=== PATIENT | female | born 1965 | race Hispanic/Latino ===

== ENCOUNTER 2023-03-02 10:22 | Outpatient (CLI) | payer BC, OTHER ==
[2023-03-02 11:45] LABS: #Basophils 0.1 10x3/uL (0.0-0.2); #Eosinphils 0.3 10x3/uL (0.0-0.5); #Monocytes 0.4 10x3/uL (0.0-1.1); %Basophils 0.8 % (0.0-2.0); %Lymphocytes 41.4 % (18.0-47.0); %Monocytes 6.4 % (0.0-10.0); %Neutrophils 47.1 % (40.0-75.0); Hematocrit 45.1 % (34.9-44.5); Hemoglobin 15.3 g/dL (12.0-15.5); Mean Corpuscular HGB CONC 33.9 g/dL (32.0-36.0); Mean Corpuscular Hemoglobin 31.3 pg (27.0-33.0); Mean Corpuscular Volume 92.2 fl (81.6-98.3); Mean Platelet Volume 11.6 fl (7.4-10.4); Platelet Count 309 10x3/uL (150-450); RBC Distribution Width 12.9 % (11.5-14.5); Red Blood Cell (RBC) Count 4.89 10x6/uL (3.90-5.03); White Blood Cell (WBC) Count 6.3 10x3/uL (3.5-10.5)
[2023-03-02 12:50] LABS: ALT (SGPT) 47 U/L (8-55); AST (SGOT) 22 U/L (5-34); Alkaline Phosphatase 80 U/L (40-110); Anion Gap 13 mmol/L (10-20); BUN (Urea Nitrogen) 12 mg/dL (9.8-20.1); Bilirubin, Total 0.3 mg/dL (0.2-1.2); Calc. Creatinine Clearance 0 mL/min (70-130); Carbon Dioxide 25 mmol/L (22-29); Chloride 109 mmol/L (98-107); Estimated GFR 99; Globulin 2.6 g/dL (2.4-3.5); Glucose 110 mg/dL (70-105); Potassium 4.6 mmol/L (3.5-5.1); Protein, Total 6.6 g/dL (6.0-8.3); Sodium 142 mmol/L (136-145)
== END 2023-03-02 10:23 | disposition home or self-care (01) ==
LOC: LABBT 10:22
PROVIDERS: ATTEND Surgery
DX: Z01.818 Encounter for other preprocedural examination (principal); K43.9 Ventral hernia without obstruction or gangrene
CPT/HCPCS: 80053; 85025; 93005; 93010

== ENCOUNTER 2023-03-06 05:58 | Day surgery (SDC) | payer BC, OTHER ==
[2023-03-02 11:28] VITALS: BMI 31.3
[2023-03-06] MEDS ORDERED: Midazolam HCl 2 mg/2 ml Vial ONE (06:43)
[2023-03-06] MEDS ORDERED: Fentanyl 250 MCG/5 ML VIAL ONE ×2 (06:43→09:26)
[2023-03-06] MEDS ORDERED: Ondansetron PF 4 MG/2 ML Vial ONE ×3 (06:55→11:02)
[2023-03-06] MEDS ORDERED: NEOSTIGMINE 3 MG/3 ML SYR 3 MG/3 ML SYRINGE ONE (07:19)
[2023-03-06] MEDS ORDERED: Lidocaine 1% PF 5 ML VIAL ONE (07:19)
[2023-03-06] MEDS ORDERED: Rocuronium Bromide 10 MG/ML (10ML VIAL) ONE (07:19)
[2023-03-06] MEDS ORDERED: PROPOFOL 200 MG/20 ML VIAL ONE (07:19)
[2023-03-06] MEDS ORDERED: Glycopyrrolate 0.2 MG/ML 5 ML SYRINGE ONE (07:19)
[2023-03-06] MEDS ORDERED: Dexamethasone 20 MG/5 ML VIAL ONE (07:19)
[2023-03-06] MEDS ORDERED: Sodium Chloride 0.9% 100 ML ONE (07:28)
[2023-03-06] MEDS ORDERED: CEFAZOLIN 2 GM VIAL ONE (07:28)
[2023-03-06] MEDS ORDERED: EPINEPHrine 1 MG/ML VIAL ONE (07:47)
[2023-03-06] MEDS ORDERED: Bupivacaine 0.25% HCL 30 ML VIAL ONE (07:47)
[2023-03-06] MEDS ORDERED: SUGAMMADEX SODIUM 200 MG/2 ML VIAL ONE (08:50)
[2023-03-06] MEDS ORDERED: fentaNYL 50 mcg/mL 1 mL Vial ONE (09:22)
[2023-03-06] MEDS ORDERED: Morphine 2 MG/ML VIAL ONE (11:45)
[2023-03-06] MEDS ORDERED: HYDROcodone/Acetaminophen 5/325 mg Tablet ONE (12:49)
== END 2023-03-06 13:25 | disposition home or self-care (01) ==
LOC: SDC 05:58
PROVIDERS: ATTEND Surgery
PROC: 0WUF4JZ Supplement Abdominal Wall with Synthetic Substitute, Percutaneous Endoscopic Approach (ICD-10-PCS; principal; 2023-03-06)
DX: K43.2 Incisional hernia without obstruction or gangrene (principal); K43.9 Ventral hernia without obstruction or gangrene; Z90.49 Acquired absence of other specified parts of digestive tract
CPT/HCPCS: A4314; C1781; J0171; J1100; J2250; J2272; J2405; J2704; J3010; J3490; S0020